=== PATIENT | male | born 1940 | race Caucasian/White ===

== ENCOUNTER 2025-03-20 02:27 | Emergency (ER) | payer OTHER, SELFPAY ==
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
[2025-03-20 03:18] VITALS: BP 159/71; PULSE 104; RESP 16; TEMP 36.5; O2SAT 94
[2025-03-20 03:20] VITALS: BMI 25.0
[2025-03-20] MEDS: ONDANSETRON ODT 4 MG TABRAP PO (03:45)
[2025-03-20] MEDS: ACETAMINOPHEN w/COD 300-30 TABLET 2 TAB PO (03:45)
[2025-03-20] MEDS: MORPHINE SULF INJ 10 MG/ML VIAL IM (04:46)
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
[2025-03-20 06:55] VITALS: PULSE 93
[2025-03-20 06:58] VITALS: BP 148/79; PULSE 99; RESP 17; TEMP 36.6; O2SAT 93
[2025-03-20 07:00] VITALS: PULSE 99
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
[2025-03-20] MEDS: SODIUM CHLORIDE 0.9% 1000 ML 1,000 ML 100 ML IV (07:31)
--- NOTE | 2025-03-20 07:41 | PC.NURSE ---
spoke w/son ronna at this time, gave phone to pt to talk to son and update him. Son on his way would like to be updated on when pt leaves and where he is transferred to.
[2025-03-20 07:47] LABS: Basophils % (Auto) 0 % (0-2.5); Eosinophils % (Auto) 0 % (0-10); Hemoglobin 11.6 g/dL (13.5-16.0); Immature Granulocytes % (Auto) 1 % (0-0); Immature Granulocytes Auto 0.11 Thou/mm3 (0.00-0.00); Lymphocytes # (Auto) 1.1 Thou/mm3 (1.0-4.8); Lymphocytes % (Auto) 7 % (10-50); Mean Corpuscular HGB Conc 35.2 g/dl (31.0-37.0); Mean Corpuscular Hemoglobin 31.2 pg (25.0-35.0); Mean Corpuscular Volume 89 fL (80-100); Monocytes # (Auto) 1.3 Thou/mm3 (0.0-0.8); Monocytes % (Auto) 8 % (0-12); Neutrophils # (Auto) 13.7 Thou/mm3 (1.8-7.7); Neutrophils % (Auto) 85 % (37-80); Nucleated Red Blood Cell % 0 /100 WBC (0); Platelet Count 184 Thou/mm3 (140-440); RDW Standard Deviation 44.2 fL (35.1-43.9); Red Blood Count 3.72 Miln/mm3 (4.50-5.90); White Blood Count 16.2 Thou/mm3 (3.8-10.6)
[2025-03-20 08:08] LABS: Alanine Aminotransferase 51 U/L (10-49); Albumin, Serum 4.2 gm/dL (3.4-4.8); Albumin/Globulin Ratio 2.2 (1.2-2.2); Alkaline Phosphatase 66 U/L (46-116); Anion Gap 14 (7-16); BUN/Creatinine Ratio 11 Ratio (12-20); Bilirubin,Total 1.3 mg/dL (0.3-1.2); Blood Urea Nitrogen 15 mg/dL (9-23); Calcium 9.3 mg/dL (8.3-10.6); Calcium (Corrected) 9.3 mg/dL (8.5-10.1); Carbon Dioxide 24.1 mMol/L (20.0-31.0); Chloride 105 mMol/L (98-107); Creatinine (Component) 1.4 mg/dL (0.6-1.3); Globulin 1.9 gm/dL (2.3-3.5); Glucose 231 mg/dL (74-106); Osmolality,Calculated 292 (275-295); Potassium 4.9 mMol/L (3.4-5.1); Sodium 143 mMol/L (136-145); Total Protein 6.1 gm/dL (5.7-8.2); eGFR 50 See Note
[2025-03-20] MEDS: ONDANSETRON INJ 2 MG/ML INJ 2 ML 4 MG IVP (08:22)
[2025-03-20] MEDS: HYDROmorphone INJ 2 MG/ML VIAL 0.5 MG IVP (08:22)
[2025-03-20 08:25] LABS: INR 1.1 (0.9-1.3); Partial Thromboplastin Time 23.8 Seconds (22.0-36.0)
[2025-03-20 08:27] LABS: Troponin I 0.142 ng/mL (0.0-0.045)
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
== END 2025-03-20 09:01 | disposition short-term general hospital (02) ==
LOC: SERX 04:32
PROVIDERS: Family Medicine; Emergency Provider Emergency Medicine
DX: S12.101A Unspecified nondisplaced fracture of second cervical vertebra, initial encounter for closed fracture (principal); S22.42XA Multiple fractures of ribs, left side, initial encounter for closed fracture; S32.019A Unspecified fracture of first lumbar vertebra, initial encounter for closed fracture; S32.029A Unspecified fracture of second lumbar vertebra, initial encounter for closed fracture; S32.039A Unspecified fracture of third lumbar vertebra, initial encounter for closed fracture; S09.93XA Unspecified injury of face, initial encounter; S09.90XA Unspecified injury of head, initial encounter; S36.899A Unspecified injury of other intra-abdominal organs, initial encounter; S22.071A Stable burst fracture of T9-T10 vertebra, initial encounter for closed fracture; M62.89 Other specified disorders of muscle; R05.9 Cough, unspecified; V43.52XA Car driver injured in collision with other type car in traffic accident, initial encounter; Z75.1 Person awaiting admission to adequate facility elsewhere
CPT/HCPCS: 36415; 70450; 70486; 71045; 71250; 72125; 72128; 72131; 74176; 80053; 81001; 84484; 85025; 85610; 85730; 96372; 96374; 96375; 99285; J1171; J2270; J2405; J7030; Q0162; A9270